=== PATIENT | female | born 1960 | race Two or more races ===

== ENCOUNTER 2020-05-08 03:59 | Emergency (ER) | payer MEDICAID, OTHER ==
[~2020-05-08] VITALS: Ht 160 cm; Wt 65.8 kg
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
[2020-05-08] MEDS ORDERED: KETOROLAC TROMETHAMINE 15 MG/ML VIAL ONE (04:14)
[2020-05-08] MEDS ORDERED: methylPREDNISolone SOD SUCC 125 MG/2ML VIAL ONE (04:26)
[2020-05-08] MEDS ORDERED: NITROGLYCERIN 0.4 MG/TAB BOTTLE SL ONE (04:30)
[2020-05-08] MEDS ORDERED: KETOROLAC TROMETHAMINE INJ 30 MG/ML VIAL IV ONE (04:30)
[2020-05-08] MEDS ORDERED: ASPIRIN 325 MG TABLET PO ONE (04:30)
[2020-05-08] MEDS ORDERED: methylPREDNISolone SOD SUCC 125 MG/2ML VIAL IV ONE (04:30)
[2020-05-08] MEDS ORDERED: IV NS 0.9% 1,000 ML IV ONE ×2 (04:30→06:00)
[2020-05-08 04:38] LABS: BASOPHILS # (AUTO) 0.1 /CMM (0.0-0.2); BASOPHILS % (AUTO) 0.8 % (0.0-2.0); EOSINOPHILS % (AUTO) 5.3 % (0.0-6.0); HEMATOCRIT 40 % (33-45); HEMOGLOBIN 12.3 g/dL (11.5-14.8); LYMPHOCYTES # (AUTO) 3.1 /CMM (0.8-4.8); LYMPHOCYTES % (AUTO) 42.4 % (20.0-44.0); MEAN CORPUSCULAR HGB CONC 31 g/dl (31.0-36.0); MEAN CORPUSCULAR VOLUME 65 fL (82-100); MONOCYTES # (AUTO) 0.4 /CMM (0.1-1.30); MONOCYTES % (AUTO) 5.9 % (2.0-12.0); NEUTROPHILS # (AUTO) 3.4 /CMM (1.8-8.9); NEUTROPHILS % (AUTO) 45.6 % (43.0-81.0); PLATELET COUNT (AUTO) 247 /CMM (150-450); RED BLOOD CELL COUNT(AUTO) 6.23 MIL/uL (4.0-5.2); WHITE BLOOD COUNT (AUTO) 7.4 K/uL (4.3-11.0)
--- NOTE | 2020-05-08 05:27 | NUR ---
RESTING COMFORTABLY. ON MONITOR.
[2020-05-08 05:35] LABS: CALCIUM, SERUM 9.1 mg/dL (8.5-10.1); CREATININE 0.8 mg/dL (0.6-1.3); POTASSIUM 3.7 mmol/L (3.5-5.1)
[2020-05-08] MEDS ORDERED: BENZONATATE 100 MG CAPSULE PO STA (05:59)
--- NOTE | 2020-05-08 06:07 | NUR ---
AT BEDSIDE SPEAKING TO PT.
--- NOTE | 2020-05-08 06:31 | NUR ---
COVID SWAB SENT TO LAB
--- NOTE | 2020-05-08 06:32 | NUR ---
PT AMBULATED TO RESTROOM.
--- NOTE | 2020-05-08 07:00 | NUR ---
SPEAKING TO PT.
--- NOTE | 2020-05-08 07:16 | NUR ---
IV removed. Catheter intact and site benign. Pressure and 4x4 applied to site. No bleeding noted.
[2020-05-08 07:17] VITALS: BP 121/73
--- NOTE | 2020-05-08 07:17 | NUR ---
Patient discharged to home in stable condition. Written and verbal after care instructions given. Patient verbalizes understanding of instruction and RX. Pt ambulated with steady gait. vss.
== END 2020-05-08 07:17 | disposition home or self-care (01) ==
LOC: ER 04:01
DX: R07.9 Chest pain, unspecified (principal); R05 Cough; Z20.828 Contact with and (suspected) exposure to other viral communicable diseases
CPT/HCPCS: 36415; 71045; 80048; 83880; 84484 ×2; 85025; 93005; 96374; 96375; 99285; C9803; J1885; J2930; J7030 ×2; U0003

== ENCOUNTER 2020-11-01 12:03 | Emergency (ER) | payer OTHER ==
[~2020-11-01] VITALS: Ht 157.5 cm; Wt 65.8 kg
--- NOTE | 2020-11-01 12:13 | NUR ---
BIBS. L SIDED CP RADIATING TO L SHOULDER X 0900 SHARP 03/31 TOOK ASA 81MG @ 1130. TO ER BED 10, HOOKED TO PACKING ATTENDANT, BP CUFF AND POX, CHANGED TO HOSP GOWN, WARM BLANKET PROVIDED. PATIENT AAO x 4. BREATHING EVEN AND UNLABORED. AWAITING MD RIDLEY. KEPT WARM AND COMFORTABLE.
--- NOTE | 2020-11-01 12:44 | NUR ---
DR HARRISON AT BEDSIDE
[2020-11-01] MEDS ORDERED: LORAZEPAM INJ 2 MG/ML VIAL IV ONE (13:00)
[2020-11-01] MEDS ORDERED: LORAZEPAM INJ 2 MG/ML VIAL ONE (13:00)
[2020-11-01 13:09] LABS: LYMPHOCYTES # (AUTO) 1.9 /CMM (0.8-4.8); MEAN CORPUSCULAR VOLUME 64 fL (82-100); MONOCYTES # (AUTO) 0.3 /CMM (0.1-1.30); NEUTROPHILS # (AUTO) 3.3 /CMM (1.8-8.9); WHITE BLOOD COUNT (AUTO) 5.7 K/uL (4.3-11.0)
[2020-11-01 13:12] LABS: BASOPHILS % (AUTO) 0.5 % (0.0-2.0); EOSINOPHILS % (AUTO) 2.4 % (0.0-6.0); HEMATOCRIT 38 % (33-45); HEMOGLOBIN 12.1 g/dL (11.5-14.8); LYMPHOCYTES % (AUTO) 33.2 % (20.0-44.0); MEAN CORPUSCULAR HGB CONC 32 g/dl (31.0-36.0); MONOCYTES % (AUTO) 5.7 % (2.0-12.0); NEUTROPHILS % (AUTO) 58.2 % (43.0-81.0); PLATELET COUNT (AUTO) 224 /CMM (150-450); RED BLOOD CELL COUNT(AUTO) 5.99 MIL/uL (4.0-5.2)
[2020-11-01] MEDS ORDERED: IV NS 0.9% 500 ML BAG IV ONE (13:30)
[2020-11-01 13:45] LABS: CALCIUM, SERUM 9.1 mg/dL (8.5-10.1); CREATININE 0.7 mg/dL (0.6-1.3)
[2020-11-01] MEDS ORDERED: CT SWABBABLE VALVE TRANS SET 1 EA INFUS.SET MC ONE (13:56)
[2020-11-01] MEDS ORDERED: IOHEXOL-300 100 ML VIAL IV ONE (13:56)
[2020-11-01] MEDS ORDERED: IV NS 0.9% 250 ML IV ONE (13:56)
--- NOTE | 2020-11-01 14:06 | NUR ---
rpid covid swab done and sent to lab
[2020-11-01 16:53] VITALS: BP 141/79
--- NOTE | 2020-11-01 16:53 | NUR ---
IV removed. Catheter intact and site benign. Pressure and 4x4 applied to site. No bleeding noted.Patient discharged to home in stable condition. Written and verbal after care instructions given. Patient verbalizes understanding of instruction.
== END 2020-11-01 16:54 | disposition home or self-care (01) ==
LOC: ER 12:07
DX: R07.9 Chest pain, unspecified (principal); Z20.822 Contact with and (suspected) exposure to COVID-19; I51.7 Cardiomegaly; F41.9 Anxiety disorder, unspecified; R79.1 Abnormal coagulation profile
CPT/HCPCS: 36415; 71045; 71275; 80048; 84484 ×2; 85007; 85025; 85378; 87426; 93005; 96361; 96374; 99285; C9803; J2060; J7030; J7050; Q9967

== ENCOUNTER 2024-04-10 20:38 | Inpatient (IN) | payer OTHER ==
[~2024-04-10] VITALS: Ht 160 cm; Wt 65.8 kg
[2024-04-10] MEDS: IV NS 0.9% 1,000 ML IV ONE (21:52)
[2024-04-10] MEDS ORDERED: KETOROLAC TROMETHAMINE INJ 30 MG/ML VIAL ONE (21:53)
[2024-04-10] MEDS ORDERED: ONDANSETRON HCL/PF 4 MG/2 ML VIAL ONE (21:53)
[2024-04-10] MEDS: KETOROLAC TROMETHAMINE INJ 30 MG/ML VIAL IV ONE (21:58)
[2024-04-10] MEDS: ONDANSETRON HCL/PF - ER 4 MG/2 ML VIAL IV ONE (21:58)
[2024-04-10 22:02] LABS: APPEARANCE,URINE CLEAR (CLEAR); BILIRUBIN,URINE NEGATIVE (NEGATIVE); BLOOD, URINE NEGATIVE Ery/uL (NEGATIVE); COLOR,URINE YELLOW (YELLOW); KETONES,URINE 1+ mg/dL (NEGATIVE); LEUKOCYTE ESTERASE ,URINE NEGATIVE (NEGATIVE); NITRITE, URINE NEGATIVE (NEGATIVE); PROTEIN,URINE NEGATIVE (NEGATIVE); UGLUCOSE NEGATIVE (NEGATIVE); UROBILINOGEN,URINE 0.2 EU/dL (0.2)
[2024-04-10 22:09] LABS: BASOPHILS # (AUTO) 0.1 K/uL (0.0-0.2); BASOPHILS % (AUTO) 1.2 % (0.0-2.0); EOSINOPHILS # (AUTO) 0.1 K/uL (0.0-0.7); EOSINOPHILS % (AUTO) 1.2 % (0.0-6.0); HEMATOCRIT 37 % (33-45); HEMOGLOBIN 11.9 g/dL (11.5-14.8); LYMPHOCYTES % (AUTO) 26.2 % (20.0-44.0); MEAN CORPUSCULAR HEMOGLOBIN 21 PG (26.0-33.0); MEAN CORPUSCULAR HGB CONC 32 g/dl (31.0-36.0); MEAN CORPUSCULAR VOLUME 64 fL (82-100); MONOCYTES # (AUTO) 0.3 K/uL (0.1-1.30); MONOCYTES % (AUTO) 3.8 % (2.0-12.0); NEUTROPHILS # (AUTO) 5.2 K/uL (1.8-8.9); NEUTROPHILS % (AUTO) 67.6 % (43.0-81.0); PLATELET COUNT (AUTO) 242 K/uL (150-450); RED BLOOD CELL COUNT(AUTO) 5.81 MIL/uL (4.0-5.2); RED CELL DISTRIBUTION WIDTH 15.3 % (11.5-15.0); WHITE BLOOD COUNT (AUTO) 7.7 K/uL (4.3-11.0)
[2024-04-10 22:30] LABS: LACTIC ACID 1.4 mmol/L (0.4-2.0)
[2024-04-10 22:34] LABS: ALANINE AMINOTRANSFERASE 17 U/L (12-78); ALBUMIN 3.3 g/dL (3.4-5.0); ALKALINE PHOSPHATASE 101 U/L (46-116); BILIRUBIN,TOTAL 0.5 mg/dL (0.2-1.0); CARBON DIOXIDE 25 mmol/L (21-32); CHLORIDE 103 mmol/L (98-107); CREATININE 0.6 mg/dL (0.6-1.3); GLUCOSE 121 mg/dL (74-106); LIPASE 24 U/L (16-77); NT-PRO BNP 74 pg/mL (0-125); POTASSIUM 5.6 mmol/L (3.5-5.1); SODIUM SERUM 137 mmol/L (136-145); TOTAL PROTEIN, SERUM 7.5 g/dL (6.4-8.2); UREA NITROGEN, BLOOD 10 mg/dL (7-18)
[2024-04-10 23:02] LABS: ALCOHOL, BLOOD < 3 mg/dL (0-10)
[2024-04-10 23:17] LABS: CREATINE KINASE, TOTAL 236 U/L (26-192)
[2024-04-10 23:57] LABS: AMPHETAMINE, URINE NEGATIVE (NEGATIVE); BARBITURATE, URINE NEGATIVE (NEGATIVE); BENZODIAZEPINE, URINE NEGATIVE (NEGATIVE); CANNABINOID, URINE NEGATIVE (NEGATIVE); COCCAINE, URINE NEGATIVE (NEGATIVE); OPIATE, URINE NEGATIVE (NEGATIVE); PHENCYCLIDINE SCREEN,URINE NEGATIVE (NEGATIVE)
[2024-04-10] MEDS ORDERED: CEFTRIAXONE 1GM BAG (ER ONLY) 50 ML IV ONE (23:57)
[2024-04-10 23:58] LABS: CALCIUM, SERUM 9.1 mg/dL (8.5-10.1); CREATININE 0.7 mg/dL (0.6-1.3); POTASSIUM 3.8 mmol/L (3.5-5.1)
[2024-04-11] MEDS: CEFTRIAXONE 1 G in IV D5W 50 ML IV ONE
[2024-04-11 00:06] LABS: ASPARTATE AMINOTRANSFERASE 21 U/L (15-37)
[2024-04-11 00:38] LABS: ADD URINE CULTURE NO; BACTERIA,URINE None seen /HPF (None Seen); RBC,URINE NONE SEEN /HPF (0-2); WBC,URINE NONE SEEN /HPF (0-3)
[2024-04-11] MEDS ORDERED: ACETAMINOPHEN 325 MG TABLET PO PRN (04:30)
[2024-04-11] MEDS ORDERED: ONDANSETRON HCL/PF 4 MG/2 ML VIAL IVP PRN (04:30)
[2024-04-11] MEDS ORDERED: MORPHINE SULFATE INJ 2 MG/ML DISP.SYRIN IV PRN (04:30)
[2024-04-11 07:02] LABS: INR 0.98 (0.91-1.10); PROTHROMBIN TIME 10.4 SECS (9.2-11.1)
[2024-04-11] MEDS: IV NS 0.9% 1,000 ML IV SCH (07:04)
[2024-04-11 07:31] LABS: MAGNESIUM 2.3 mg/dL (1.8-2.4); PHOSPHORUS 4.4 mg/dL (2.5-4.9)
[2024-04-11] MEDS ORDERED: IV NS 0.9% 1,000 ML IV PRN (07:41)
[2024-04-11] MEDS ORDERED: MULT-1201 PO (07:56)
[2024-04-11] MEDS ORDERED: CALC-1026 PO (07:56)
[2024-04-11] MEDS ORDERED: ASCO100T12 PO (07:56)
[2024-04-11] MEDS ORDERED: CHOL500052 PO (07:56)
[2024-04-11] MEDS ORDERED: CLON0.5T4 PO (07:56)
[2024-04-11 09:00] VITALS: BP 138/70; TEMP 97.9; O2SAT 99
[2024-04-11] MEDS ORDERED: LORAZEPAM INJ 2 MG/ML VIAL IM PRN (14:30)
[2024-04-11] MEDS: PIPERACILLIN /TAZOBACTAM 3.375 G in IV D5W 50 ML IV ONE (15:46)
[2024-04-11 16:00] VITALS: BP 156/76; TEMP 97.7; O2SAT 100
[2024-04-11 20:00] VITALS: BP 137/68; TEMP 98.2; O2SAT 98
[2024-04-11] MEDS ORDERED: PIPERACILLIN /TAZOBACTAM 3.375 G in IV D5W 100 ML IV SCH (22:00)
== END 2024-04-11 20:50 | disposition left against medical advice (07) ==
LOC: ER 20:38 → TRANSITION 04-11 07:24 → MED 04-11 07:49
PROVIDERS: ADMIT Nurse Practitioner Family; ATTEND Nurse Practitioner Family
DX: K81.0 Acute cholecystitis (principal); I31.39 Other pericardial effusion (noninflammatory); E44.1 Mild protein-calorie malnutrition; E87.5 Hyperkalemia; E78.5 Hyperlipidemia, unspecified; E88.09 Other disorders of plasma-protein metabolism, not elsewhere classified; F41.9 Anxiety disorder, unspecified; R73.9 Hyperglycemia, unspecified; Z68.25 Body mass index [BMI] 25.0-25.9, adult
CPT/HCPCS: 36415; 76705-TC; 78226; 80048-TC; 80053-TC; 81001; 82550-TC; 82553; 83605-TC; 83690-TC; 83735-TC; 83880; 84100-TC; 84484-TC; 85025-TC; 85610-TC; 87040-TC; 93307-TC; A4223; A9537; G0378; G0480; J0696; J1885; J2405; J2543; J7030; J7060